=== PATIENT | female | born 1965 | race American Indian/Alaskan Native ===

== ENCOUNTER 2017-06-27 15:52 | Emergency (ER) | payer BC ==
[2017-06-27] MEDS ORDERED: CATAPRES ONE (16:24)
[2017-06-27] MEDS ORDERED: CATAPRES PO ONE (16:25)
--- NOTE | 2017-06-27 17:36 | Emergency Department Report ---
HPI - General Chief Complaint: High BP Time Seen by Provider: 06/27/17 17:29 - HPI HPI: 52-year-old female presents from urgent care with elevated blood pressure. She was evaluated for flulike symptoms. She was never told that she had elevated blood pressure. She denies headache. She denies chest pain. Denies abdominal pain. ED Past Medical Hx - Past Medical History Previous Medical History?: No - Social History Smoking Status: Never Smoker Substance Use Type: None - Medications Home Medications: Home Medications Medication Instructions Recorded Confirmed Last Taken Type Hydrochlorothiazide [HCTZ] 25 mg PO QDAY 30 Days #30 tablet 06/27/17 Unknown Rx amLODIPine [Norvasc] 5 mg PO DAILY 30 Days #30 tab 06/27/17 Unknown Rx ED Review of Systems ROS: Stated complaint: HYPERTENSIVE/FLU LIKE SYMPTOMS Other details as noted in HPI Comment: All other systems reviewed and negative Constitutional: fever, malaise Respiratory: denies: cough Cardiovascular: denies: chest pain Physical Exam - Physical Exam Vital Signs: Vital Signs 06/27/17 06/27/17 16:15 16:27 Temperature 98.2 F Pulse Rate 109 H 109 H Respiratory 18 Rate Blood Pressure 189/126 189/126 O2 Sat by Pulse 97 Oximetry Physical Exam: General: Well-appearing, no acute distress HEENT: Normocephalic atraumatic pupils equal round and reactive to light anicteric sclera Nose: no rhinorrhea Oropharynx: Clear mucous membranes no lesions Neck: supple, no meningismus Chest: Clear to auscultation bilaterally no rales rhonchi no wheezes Cardiac: Regular rate and rhythm no murmurs no rubs no gallops Abdomen: Soft nontender nondistended positive bowel sounds no guarding Extremities: No cyanosis no clubbing no edema Neuro: Moves all extremities 4, no gross deficits Psychiatric: Alert and oriented 4 normal aspect normal judgment normal inside ED Course Vital Signs 06/27/17 06/27/17 16:15 16:27 Temperature 98.2 F Pulse Rate 109 H 109 H Respiratory 18 Rate Blood Pressure 189/126 189/126 O2 Sat by Pulse 97 Oximetry ED Medical Decision Making - Medical Decision Making Mr. Ordaz presents with asymptomatic hypertension. Prescription: Amlodipine, hydrochlorothiazide She has referral for PCPs Critical care attestation.: If time is entered above; I have spent that time in minutes in the direct care of this critically ill patient, excluding procedure time. ED Disposition Clinical Impression: Hypertensive urgency Disposition: DC-01 TO HOME OR SELFCARE Is pt being admited?: No Does the pt Need Aspirin: No Condition: Stable Prescriptions: amLODIPine [Norvasc] 5 mg PO DAILY 30 Days #30 tab Hydrochlorothiazide [HCTZ] 25 mg PO QDAY 30 Days #30 tablet Referrals: PRIMARY CARE, [Primary Care Provider] - 3-5 Days Time of Disposition: 17:35
[2017-06-27 18:14] VITALS: BP 179/116
== END 2017-06-27 17:53 | disposition home or self-care (01) ==
LOC: ED 15:52
DX: I10 Essential (primary) hypertension (principal)
CPT/HCPCS: 99282